=== PATIENT | female | born 1975 | race African-American/Black ===

== ENCOUNTER 2017-03-06 21:05 | Emergency (ER) | payer SELFPAY ==
[~2017-03-06] VITALS: Ht 157.5 cm; Wt 113.4 kg
[~2017-03-06 21:05] MED LIST: LISI-334 PO; LORA1TAB47 PO; RANI150T2 PO
[2017-03-06 21:17] VITALS: BP 149/65
[2017-03-06] MEDS ORDERED: HYDR30CR61 TP (21:32)
[2017-03-06] MEDS ORDERED: HYDR25SU18 RC (21:32)
--- NOTE | 2017-03-06 21:32 | PHYS DOC ---
Past Medical History Past Medical History: GERD, Hypertension, Other Additional Past Medical Histor: hemorroids Past Surgical History: Cholecystectomy, Alcohol Use: Occasionally Drug Use: None Adult General Chief Complaint Chief Complaint: HEMORRHOIDS HPI HPI Patient is a 41 year old female that presents to the emergency department with complaints of rectal pain. She states she has a history of hemorrhoids and has been constipated for the last 2-3 days. She has no abdominal pain. Review of Systems Review of Systems Constitutional: Denies fever or chills [] Eyes: Denies change in visual acuity, redness, or eye pain [] HENT: Denies nasal congestion or sore throat [] Respiratory: Denies cough or shortness of breath [] Cardiovascular: No additional information not addressed in HPI [] GI: Denies abdominal pain, nausea, vomiting, bloody stools or diarrhea; complains of constipation and rectal pain [] : Denies dysuria or hematuria [] Musculoskeletal: Denies back pain or joint pain [] Integument: Denies rash or skin lesions [] Neurologic: Denies headache, focal weakness or sensory changes [] Endocrine: Denies polyuria or polydipsia [] Allergies Allergies Allergies Coded Allergies Type Severity Reaction Last Updated Verified No Known Drug Allergies 11/30/14 No Physical Exam Physical Exam Constitutional: Well developed, well nourished, no acute distress, non-toxic appearance. [] Cardiovascular:Heart rate regular rhythm, no murmur [] Lungs & Thorax: Bilateral breath sounds clear to auscultation [] Abdomen: Bowel sounds normal, soft, no tenderness, no masses, no pulsatile masses. Rectal exam: She does have a nonthrombosed hemorrhoid, external. [] Skin: Warm, dry, no erythema, no rash. [] Neurologic: Alert and oriented X 3, normal motor function, normal sensory function, no focal deficits noted. [] Psychologic: Affect normal, judgement normal, mood normal. [] Current Patient Data Vital Signs Vital Signs Date Time Temp Pulse Resp B/P (MAP) Pulse Ox O2 Delivery O2 Flow Rate FiO2 03/06/17 21:17 99.0 20 149/65 (93) 96 Room Air 99.0 EKG EKG [] Radiology/Procedures Radiology/Procedures [] Course & Med Decision Making Course & Med Decision Making Pertinent Labs and Imaging studies reviewed. (See chart for details) [] Dragon Disclaimer Catina Disclaimer This electronic medical record was generated, in whole or in part, using a voice recognition dictation system. Departure Departure Impression: Primary Impression: Acute hemorrhoid Disposition: 01 HOME, SELF-CARE Condition: STABLE Referrals: NO PCP (PCP) [facility] Patient Instructions: Hemorrhoidectomy, Care After Additional Instructions: Increase the bulk foods in your diet, increase water intake. Increase exercise. You may use Colace [id number] as labeled and is indicated for constipation. Scripts Hydrocortisone (ANUSOL-HC) 30 Gm Cream..g. 1 GUILLE TP BID, #30 GM 1 Refill Prov: ACM AMBRIZ APRN 03/06/17 Hydrocortisone Acetate (ANUSOL-HC) 25 Mg Supp.rect 1 SUPP RC BID, #14 SUPP Prov: CAM AMBRIZ APRN 03/06/17 CAM AMBRIZ APRN Mar 06, 2017 21:32
== END 2017-03-06 21:43 | disposition home or self-care (01) ==
LOC: ER 21:05
DX: K64.4 Residual hemorrhoidal skin tags (principal); K21.9 Gastro-esophageal reflux disease without esophagitis; I10 Essential (primary) hypertension; Z90.49 Acquired absence of other specified parts of digestive tract
CPT/HCPCS: 99283

== ENCOUNTER 2017-03-26 14:30 | Emergency (ER) | payer SELFPAY ==
[~2017-03-26 14:30] MED LIST changes: +HYDR25SU18 RC; +HYDR30CR61 TP
[2017-03-26 14:45] VITALS: BP 137/62
[2017-03-26] MEDS ORDERED: IV NORMAL SALINE 1000ML BAG 1,000 ML IV SCH (15:10)
[2017-03-26] MEDS ORDERED: 0.9 % SODIUM CHLORIDE 10 ML DISP.SYRIN. IV PRN (15:15)
[2017-03-26] MEDS ORDERED: HYDROmorphone 2 MG/ML VIAL IV/SQ PRN (15:15)
[2017-03-26] MEDS ORDERED: HYDROmorphone 2 MG/ML VIAL IV ONE ×2 (15:15→17:15)
[2017-03-26] MEDS ORDERED: KETOROLAC TROMETHAMINE 30 MG/ML INJ. ONE (15:18)
[2017-03-26] MEDS ORDERED: ONDANSETRON PF 4 MG/2 ML VIAL. ONE (15:18)
[2017-03-26] MEDS ORDERED: HYDROmorphone 2 MG/ML VIAL ONE (15:18)
--- NOTE | 2017-03-26 15:20 | PHYS DOC ---
Past Medical History Past Medical History: GERD, Hypertension, Other Additional Past Medical Histor: hemorroids Past Surgical History: Cholecystectomy, Alcohol Use: Occasionally Drug Use: None Adult General Chief Complaint Chief Complaint: HEMORRHOIDS HPI HPI Patient is a very pleasant 41-year-old Afro-Tongan female with history of hypertension presents with a three-week history of progressive rectal pain. She was seen in our ER earlier last week told she had an hemorrhoid. She said this hemorrhoid pain is gotten progressively worse to the point now she cannot walk she cannot sit without the pain becoming increasingly severe. There hurts with bowel movements. She denies any blood in her stool she has had symptoms of fevers and chills at home now resting worse over last day. She is concerned that she has surgical issue that needs to be evaluated. She denies any trauma to her rectum, denies any UTI symptoms, denies any nausea, vomiting or diarrhea. She says that she's never had these symptoms before. She does not have insurance and she is not quite sure how she supposed to arrange for follow- up for these hemorrhoids that she told she needed banded by the ED physician a saw her last evaluation. She was seen here in our ER she was diagnosed with a nonthrombosed rectal hemorrhoid given preparation H and Anusol HC rectal suppositories and PCP follow-up. Review of Systems Review of Systems Constitutional: sHe has had fevers and chills. Eyes: Denies change in visual acuity, redness, or eye pain [] HENT: Denies nasal congestion or sore throat [] Respiratory: Denies cough or shortness of breath [] Cardiovascular: No additional information not addressed in HPI [] GI: Denies abdominal pain, nausea, vomiting, she describes severe rectal pain with bowel movements. Denies any blood in her stool. : Denies dysuria or hematuria [] Musculoskeletal: Denies back pain or joint pain [] Integument: Denies rash or skin lesions [] Neurologic: Denies headache, focal weakness or sensory changes [] Endocrine: Denies polyuria or polydipsia [] Current Medications Current Medications Current Medications Medications (Trade) Dose Ordered Sig/Trish Start Time Stop Time Status Last Admin Dose Admin Hydromorphone HCl (Dilaudid) 2 mg STK-MED ONCE 03/26/17 15:18 03/26/17 15:19 DC Info (Do NOT chart on this entry -- for MONITORING) 1 each PRN DAILY PRN 03/26/17 15:30 03/28/17 15:29 Iohexol (Omnipaque 300 Mg/ml) 75 ml 1X ONCE 03/26/17 16:00 03/26/17 16:01 DC 03/26/17 16:00 75 ML Ketorolac Tromethamine (Toradol) 30 mg STK-MED ONCE 03/26/17 15:18 03/26/17 15:19 DC Ondansetron HCl (Zofran) 4 mg STK-MED ONCE 03/26/17 15:18 03/26/17 15:19 DC Sodium Chloride (Normal Saline Flush) 10 ml QSHIFT PRN 03/26/17 15:15 Allergies Allergies Allergies Coded Allergies Type Severity Reaction Last Updated Verified No Known Drug Allergies 11/30/14 No Physical Exam Physical Exam Patient's vital signs been reviewed and was ordered on the chart shows low- grade fever with mild tachycardia. Patient is also tachypnea on my exam. Constitutional: Well developed, well nourished, patient is very uncomfortable nontoxic in appearance but laying on her left side down refusing put any pressure on her rectum. Cardiovascular: Heart rate is tachycardic there are no murmurs gallops or rubs normal rhythm, no murmur [] Lungs & Thorax: Bilateral breath sounds clear to auscultation [] Abdomen: Bowel sounds normal, soft, no tenderness, no masses, no pulsatile masses. Rectal exam demonstrates severe tenderness to palpation along the rectum and rectal verge. There is moderate soft tissue swelling and induration of the tissues. It was very difficult to see the rectum at all given the amount of soft tissue swelling around the soft tissues of the anus.. [] Skin: Warm, dry, no erythema, no rash. [] Back: No tenderness, no CVA tenderness. [] Extremities: No tenderness, no cyanosis, no clubbing, ROM intact, no edema. [] Neurologic: Alert and oriented X 3, normal motor function, normal sensory function, no focal deficits noted. [] Psychologic: She is very tearful and very anxious.] Current Patient Data Vital Signs Vital Signs Date Time Temp Pulse Resp B/P (MAP) Pulse Ox O2 Delivery O2 Flow Rate FiO2 03/26/17 14:45 99.2 116 20 97 Room Air 99.2 Lab Values Laboratory Tests Test 03/26/17 15:20 03/26/17 15:26 White Blood Count 9.4 x10^3/uL (4.0-11.0) Red Blood Count 4.82 x10^6/uL (3.50-5.40) Hemoglobin 14.3 g/dL (12.0-15.5) Hematocrit 42.5 % (36.0-47.0) Mean Corpuscular Volume 88 fL (79-100) Mean Corpuscular Hemoglobin 30 pg (25-35) Mean Corpuscular Hemoglobin Concent 34 g/dL (31-37) Red Cell Distribution Width 14.3 % (11.5-14.5) Platelet Count 205 x10^3/uL (140-400) Neutrophils (%) (Auto) 61 % (31-73) Lymphocytes (%) (Auto) 28 % (24-48) Monocytes (%) (Auto) 8 % (0-9) Eosinophils (%) (Auto) 3 % (0-3) Basophils (%) (Auto) 1 % (0-3) Neutrophils # (Auto) 5.7 x10^3uL (1.8-7.7) Lymphocytes # (Auto) 2.6 x10^3/uL (1.0-4.8) Monocytes # (Auto) 0.7 x10^3/uL (0.0-1.1) Eosinophils # (Auto) 0.3 x10^3/uL (0.0-0.7) Basophils # (Auto) 0.1 x10^3/uL (0.0-0.2) Sodium Level 139 mmol/L (136-145) Potassium Level 3.5 mmol/L (3.5-5.1) Chloride Level 101 mmol/L (98-107) Carbon Dioxide Level 32 mmol/L (21-32) Anion Gap 6 (6-14) Blood Urea Nitrogen 13 mg/dL (7-20) Creatinine 1.0 mg/dL (0.6-1.0) Estimated GFR (Cockcroft-Gault) 73.2 BUN/Creatinine Ratio 13 (6-20) Glucose Level 128 mg/dL (70-99) H Calcium Level 8.6 mg/dL (8.5-10.1) Total Bilirubin 0.5 mg/dL (0.2-1.0) Aspartate Amino Transferase (AST) 14 U/L (15-37) L Alanine Aminotransferase (ALT) 32 U/L (14-59) Alkaline Phosphatase 74 U/L (46-116) Total Protein 7.8 g/dL (6.4-8.2) Albumin 3.7 g/dL (3.4-5.0) Albumin/Globulin Ratio 0.9 (1.0-1.7) L Lactic Acid Level 1.3 mmol/L (0.4-2.0) Laboratory Tests 03/26/17 15:20 Laboratory Tests 03/26/17 15:20 EKG EKG [] Radiology/Procedures Radiology/Procedures [] [facility] [address] [place] [address] IMAGING REPORT Signed PATIENT: DANIEL BEVERLY ACCOUNT: [id number] : 1975 LOCATION: ER AGE: 41 SEX: F EXAM STATUS: REG ER ORD. PHYSICIAN: JELENA PERSAUD MD REASON: rectal pain with fever and increased pain PROCEDURE: CT ABD PELV W/ IV CONTRST ONLY CT scan of the abdomen and pelvis with contrast 03/26/2017 Clinical history: Rectal pain and fever. Technique: After the intravenous administration of 75 cc of Omnipaque 300, contiguous, 5 mm axial sections were obtained through the abdomen and pelvis. 75 cc of Omnipaque 300 were administered intravenously during this examination. One or more of the following individualized dose reduction techniques were utilized for this study: 1. Automated exposure control. 2. Adjustment of the mA and/or kV according to patient size. 3. Use of iterative reconstruction technique. Findings: No previous imaging studies are available for comparison. Images through the lung bases demonstrate borderline cardiomegaly. A 4 mm calcified granuloma is seen involving the left lower lobe. The liver parenchyma has a decreased attenuation consistent with mild fatty infiltration. The liver is mildly enlarged measuring 23 cm in length. The spleen, pancreas, adrenal glands and kidneys are within normal limits. The abdominal aorta tapers normally. Surgical clips are seen within the gallbladder fossa consistent with a cholecystectomy. No free fluid or free air is seen within the abdomen. There is no evidence of bowel obstruction. The appendix is well visualized and is within normal limits. Images through the pelvis demonstrate the urinary bladder distended with urine. Tubal ligation clips are seen within the pelvis. Calcifications are seen within the pelvis consistent with phleboliths. No free fluid is seen. No abnormal fluid collection is seen in the ischiorectal fossa. Mild S-shaped curvature of the thoracolumbar spine is seen. Degenerative changes are seen involving the lower thoracic and mid and lower lumbar spine and both hips. Impression: No acute abnormality is seen. DICTATED and SIGNED BY: PEYTON STERN MD DATE: 03/26/17 [id number] CC: JELENA PERSAUD MD; UNKNOWN PCP NAME ~ Course & Med Decision Making Course & Med Decision Making Pertinent Labs and Imaging studies reviewed. (See chart for details) she presents with increasing rectal pain over the last 3 weeks without fevers and chills. My initial concern upon attempted rectal exam given although soft tissue swelling was rectal abscess or perirectal abscess. Patient's fever is low -grade at 99.2 patient given fluids antiemetics and pain meds here in the ER to help facilitate evaluation .Patient tells me that their symptoms given during CC are improved. Time is now 4 PM. Patient tells me that their symptoms given during CC are improved. He is resting comfortably we reviewed labs and radiology report. Patient has a normal white blood cell count and normal CBC. She has normal CMP. CT scan reveals no evidence of soft tissue swelling abscess or perirectal abscess at this time. Patient's symptoms are markedly improved. I have offered patient viscous lidocaine to treat the surface of her rectum. She was offered pain medications and continued rectal hygiene help improve her symptoms until we are for her back to Dr. Alfonso, colorectal surgeon who may help with her hemorrhoid management. [] Impression, external hemorrhoids, rectal pain Disposition: PCP follow-up with general surgery or rectal surgery referral. [place] Disclaimer Catina Disclaimer This electronic medical record was generated, in whole or in part, using a voice recognition dictation system. Departure Departure Impression: Primary Impression: Rectal pain Additional Impression: Hemorrhoids Disposition: HOME, SELF-CARE Referrals: NO PCP (PCP) Patient Instructions: Hemorrhoids, Hydrocortisone; Lidocaine rectal cream or gel Additional Instructions: Please return for any new or increasing symptoms of rectal pain despite treatment or if you have fevers greater than 102.2 despite treatment or given any question concerns. I would advise that you increase your conception of fluids as well as a stool bulking agents of fruits and vegetables. Call Dr. Elie Alfonso Address: [address], [place] [address] At this time there is no evidence of perirectal abscess but given your increasing pain subjective fevers I would advise a follow-up very closely with this colorectal surgeon. He will be able to offer you other alternatives to treatment. I placed a call to his office to let him know you're interested in his services and to call him tomorrow morning. Scripts Oxycodone/Apap 5-325 (PERCOCET 5-325 MG TABLET) 1 Each Tablet 1-2 TAB PO Q4-6HRS, #12 TAB Prov: JELENA PERSAUD MD 03/26/17 Hydrocortisone Acetate (ANUSOL-HC) 25 Mg Supp.rect 1 SUPP RC BID, #28 SUPP Prov: JELENA PERSAUD MD 03/26/17 Lidocaine/Prilocaine (LIDOCAINE-PRILOCAINE CREAM) 30 Gm Cream..g. 30 GM TP [id number] for 10 Days, #30 EACH Prov: JELENA PERSAUD MD 03/26/17 Problem Qualifiers JELENA PERSAUD MD Mar 26, 2017 15:20
[2017-03-26 15:23] LABS: BASO # 0.1 x10^3/uL (0.0-0.2); BASO % 1 % (0-3); EOS % 3 % (0-3); HEMATOCRIT 42.5 % (36.0-47.0); HEMOGLOBIN 14.3 g/dL (12.0-15.5); LYMPH # 2.6 x10^3/uL (1.0-4.8); LYMPH % 28 % (24-48); MEAN CORPUSCULAR HEMOGLOBIN 30 pg (25-35); MEAN CORPUSCULAR HGB CONC 34 g/dL (31-37); MEAN CORPUSCULAR VOLUME 88 fL (79-100); MONO % 8 % (0-9); NEUT % 61 % (31-73); PLATELET COUNT 205 x10^3/uL (140-400); RED BLOOD COUNT 4.82 x10^6/uL (3.50-5.40); RED CELL DISTRIBUTION WIDTH 14.3 % (11.5-14.5); WHITE BLOOD COUNT 9.4 x10^3/uL (4.0-11.0)
[2017-03-26] MEDS ORDERED: CONTRAST GIVEN MC PRN (15:30)
[2017-03-26 15:34] LABS: CALCIUM 8.6 mg/dL (8.5-10.1); GFR 73.2; POTASSIUM 3.5 mmol/L (3.5-5.1)
[2017-03-26 15:40] LABS: ALBUMIN 3.7 g/dL (3.4-5.0); ALBUMIN/GLOBULIN RATIO 0.9 (1.0-1.7); TOTAL BILIRUBIN 0.5 mg/dL (0.2-1.0); TOTAL PROTEIN 7.8 g/dL (6.4-8.2)
[2017-03-26] MEDS ORDERED: ONDANSETRON PF 4 MG/2 ML VIAL. IV ONE (15:45)
[2017-03-26] MEDS ORDERED: KETOROLAC TROMETHAMINE 30 MG/ML INJ. IV ONE (15:45)
[2017-03-26] MEDS ORDERED: IOHEXOL 300 MG/ML 75 ML VIAL IV ONE (16:00)
--- NOTE | 2017-03-26 16:24 | RAD ---
CT scan of the abdomen and pelvis with contrast 03/26/2017 Clinical history: Rectal pain and fever. Technique: After the intravenous administration of 75 cc of Omnipaque 300, contiguous, 5 mm axial sections were obtained through the abdomen and pelvis. 75 cc of Omnipaque 300 were administered intravenously during this examination. One or more of the following individualized dose reduction techniques were utilized for this study: 1. Automated exposure control. 2. Adjustment of the mA and/or kV according to patient size. 3. Use of iterative reconstruction technique. Findings: No previous imaging studies are available for comparison. Images through the lung bases demonstrate borderline cardiomegaly. A 4 mm calcified granuloma is seen involving the left lower lobe. The liver parenchyma has a decreased attenuation consistent with mild fatty infiltration. The liver is mildly enlarged measuring 23 cm in length. The spleen, pancreas, adrenal glands and kidneys are within normal limits. The abdominal aorta tapers normally. Surgical clips are seen within the gallbladder fossa consistent with a cholecystectomy. No free fluid or free air is seen within the abdomen. There is no evidence of bowel obstruction. The appendix is well visualized and is within normal limits. Images through the pelvis demonstrate the urinary bladder distended with urine. Tubal ligation clips are seen within the pelvis. Calcifications are seen within the pelvis consistent with phleboliths. No free fluid is seen. No abnormal fluid collection is seen in the ischiorectal fossa. Mild S-shaped curvature of the thoracolumbar spine is seen. Degenerative changes are seen involving the lower thoracic and mid and lower lumbar spine and both hips. Impression: No acute abnormality is seen.
[2017-03-26] MEDS ORDERED: LIDOCAINE 5% TOPICAL OINTMENT 35GM TUBE. TP ONE (17:00)
[2017-03-26] MEDS ORDERED: OXYC-323 PO (17:05)
[2017-03-26] MEDS ORDERED: LIDO30CR TP (17:05)
[2017-03-26] MEDS ORDERED: HYDR25SU18 RC (17:05)
--- NOTE | 2017-03-27 06:52 | EKG ---
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
== END 2017-03-26 17:56 | disposition home or self-care (01) ==
LOC: ER 14:30
DX: K64.4 Residual hemorrhoidal skin tags (principal); R50.9 Fever, unspecified; K21.9 Gastro-esophageal reflux disease without esophagitis; I10 Essential (primary) hypertension
CPT/HCPCS: 36415; 74177; 80053; 83605; 85027; 87040; 93005; 96361; 96374; 96375; 99285; J1170; J1885; J2405; J7030; Q9967

== ENCOUNTER 2018-06-15 18:23 | Emergency (ER) | payer SELFPAY ==
[~2018-06-15] VITALS: Ht 157.5 cm; Wt 113.4 kg
[~2018-06-15 18:23] MED LIST changes: +LIDO30CR TP; +OXYC-323 PO
[2018-06-15 19:59] LABS: BASO # 0.1 x10^3/uL (0.0-0.2); BASO % 1 % (0-3); EOS # 0.3 x10^3/uL (0.0-0.7); EOS % 4 % (0-3); HEMATOCRIT 41.8 % (36.0-47.0); LYMPH % 28 % (24-48); MEAN CORPUSCULAR HEMOGLOBIN 30 pg (25-35); MEAN CORPUSCULAR HGB CONC 34 g/dL (31-37); MEAN CORPUSCULAR VOLUME 88 fL (79-100); MONO # 0.6 x10^3/uL (0.0-1.1); MONO % 8 % (0-9); NEUT # 4.4 x10^3uL (1.8-7.7); NEUT % 60 % (31-73); PLATELET COUNT 196 x10^3/uL (140-400); RED BLOOD COUNT 4.74 x10^6/uL (3.50-5.40); WHITE BLOOD COUNT 7.3 x10^3/uL (4.0-11.0)
[2018-06-15] MEDS: cloNIDine HCL 0.1 MG TABLET PO ONE (20:01)
[2018-06-15 20:02] VITALS: BP 185/94
[2018-06-15] MEDS: LISINOPRIL 10 MG TABLET PO ONE (20:02)
[2018-06-15] MEDS: HYDROcodone/APAP 5/325MG 1 TAB TABLET PO ONE (20:08)
[2018-06-15] MEDS ORDERED: COLC0.6T34 PO (21:03)
--- NOTE | 2018-06-15 21:03 | PHYS DOC ---
Past Medical History Past Medical History: GERD, Hypertension, Other Additional Past Medical Histor: hemorroids Past Surgical History: Cholecystectomy, Alcohol Use: Occasionally Drug Use: None Adult General Chief Complaint Chief Complaint: HAND PROBLEM HPI HPI Patient is a 43 year old female who presents with hand pain that started suddenly waking her from sleep. She has erythema and severe pain to her right thumb. She denies any known injury. The patient has never been diagnosed with gout. She has not tried any [id number] medications for pain. Review of Systems Review of Systems Constitutional: Denies fever or chills [] Respiratory: Denies cough or shortness of breath [] Cardiovascular: No additional information not addressed in HPI [] GI: Denies abdominal pain, nausea, vomiting, bloody stools or diarrhea [] : Denies dysuria or hematuria [] Musculoskeletal: See history of present illness Integument: Denies rash or skin lesions [] Neurologic: Denies headache, focal weakness or sensory changes [] Endocrine: Denies polyuria or polydipsia [] All other systems were reviewed and found to be within normal limits, except as documented in this note. Current Medications Current Medications Current Medications Medications (Trade) Dose Ordered Sig/Trish Start Time Stop Time Status Last Admin Dose Admin Acetaminophen/ Hydrocodone Bitart (Lortab 5/325) 1 tab 1X ONCE 06/15/18 20:00 06/15/18 20:01 DC 06/15/18 20:08 1 TAB Clonidine HCl (Catapres) 0.1 mg 1X ONCE 06/15/18 19:30 06/15/18 19:31 DC 06/15/18 20:01 0.1 MG Lisinopril (Prinivil) 20 mg 1X ONCE 06/15/18 19:30 06/15/18 19:31 DC 06/15/18 20:02 20 MG Allergies Allergies Allergies Coded Allergies Type Severity Reaction Last Updated Verified No Known Drug Allergies 11/30/14 No Physical Exam Physical Exam Constitutional: Well developed, well nourished, no acute distress, non-toxic appearance. [] Cardiovascular:Heart rate regular rhythm, no murmur [] Lungs & Thorax: Bilateral breath sounds clear to auscultation [] Abdomen: Bowel sounds normal, soft, no tenderness, no masses, no pulsatile masses. [] Skin: Warm, dry, no erythema, no rash. [] Back: No tenderness, no CVA tenderness. [] Extremities: tenderness to right thumb with calor and erythema noted, no cyanosis, no clubbing, ROM intact, no edema. [] Neurologic: Alert and oriented X 3, normal motor function, normal sensory function, no focal deficits noted. [] Psychologic: Affect normal, judgement normal, mood normal. [] Current Patient Data Vital Signs Vital Signs Date Time Temp Pulse Resp B/P (MAP) Pulse Ox O2 Delivery O2 Flow Rate FiO2 06/15/18 20:08 20 96 Room Air 06/15/18 20:02 88 185/94 06/15/18 19:06 98.9 98.9 Lab Values Laboratory Tests Test 06/15/18 19:40 White Blood Count 7.3 x10^3/uL (4.0-11.0) Red Blood Count 4.74 x10^6/uL (3.50-5.40) Hemoglobin 14.0 g/dL (12.0-15.5) Hematocrit 41.8 % (36.0-47.0) Mean Corpuscular Volume 88 fL (79-100) Mean Corpuscular Hemoglobin 30 pg (25-35) Mean Corpuscular Hemoglobin Concent 34 g/dL (31-37) Red Cell Distribution Width 15.0 % (11.5-14.5) H Platelet Count 196 x10^3/uL (140-400) Neutrophils (%) (Auto) 60 % (31-73) Lymphocytes (%) (Auto) 28 % (24-48) Monocytes (%) (Auto) 8 % (0-9) Eosinophils (%) (Auto) 4 % (0-3) H Basophils (%) (Auto) 1 % (0-3) Neutrophils # (Auto) 4.4 x10^3uL (1.8-7.7) Lymphocytes # (Auto) 2.0 x10^3/uL (1.0-4.8) Monocytes # (Auto) 0.6 x10^3/uL (0.0-1.1) Eosinophils # (Auto) 0.3 x10^3/uL (0.0-0.7) Basophils # (Auto) 0.1 x10^3/uL (0.0-0.2) Uric Acid 5.3 mg/dL (2.6-6.0) Laboratory Tests 06/15/18 19:40 EKG EKG [] Radiology/Procedures Radiology/Procedures [] Course & Med Decision Making Course & Med Decision Making Pertinent Labs and Imaging studies reviewed. (See chart for details) [] Dragon Disclaimer Dragon Disclaimer This electronic medical record was generated, in whole or in part, using a voice recognition dictation system. Departure Departure Impression: Primary Impression: Gout Disposition: HOME, SELF-CARE Condition: STABLE Referrals: UNKNOWN PCP NAME (PCP) Patient Instructions: Gout Additional Instructions: Take the medication as prescribed. Follow-up with your primary care provider for recheck in 3 days if not improving or return to the emergency department if worsening. 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 I was available for consultation as needed during the patient's visit in the emergency department. I agree with the clinical impression, plan, and disposition. OCTAVIANO SHAH APRN Jun 15, 2018 21:03 EVER SINHA DO Jun 16, 2018 04:35
[2018-06-15] MEDS ORDERED: LISI-334 PO (21:07)
--- NOTE | 2018-06-16 00:01 | RAD ---
Examination: HAND RIGHT 3V History: ER PATIENT. RIGHT HAND SWELLING, PAIN, AND REDNESS . NKI. NO PRIORS Comparison/Correlation: None Findings: Total of 4 images of the right hand were obtained. A ring is present about the fourth digit proximal phalanx limiting assessment at this site. Joint spaces are normal. No fracture or bone destruction. Soft tissues are unremarkable. No significant degenerative change. Impression: No acute process. Electronically signed by: Donald Lazaro MD (06/15/2018 11:58 PM) [facility]
== END 2018-06-15 21:10 | disposition home or self-care (01) ==
LOC: ER 18:23
DX: M10.9 Gout, unspecified (principal); M79.641 Pain in right hand; K21.9 Gastro-esophageal reflux disease without esophagitis; I10 Essential (primary) hypertension; Z90.49 Acquired absence of other specified parts of digestive tract; Z98.890 Other specified postprocedural states
CPT/HCPCS: 36415; 73130; 84550; 85025; 99285-25

== ENCOUNTER 2018-08-27 19:36 | Emergency (ER) | payer SELFPAY ==
[~2018-08-27] VITALS: Ht 157.5 cm; Wt 113.4 kg
[~2018-08-27 19:36] MED LIST changes: +COLC0.6T34 PO; -OXYC-323 PO; +OXYC1TAB15 PO
[2018-08-27 20:26] LABS: BILIRUBIN,URINE NEGATIVE (NEG); CLARITY,URINE CLEAR; COLOR,URINE YELLOW; NITRITE,URINE NEGATIVE (NEG); PROTEIN,URINE NEGATIVE (NEG-TRACE)
--- NOTE | 2018-08-27 20:29 | PHYS DOC ---
Past Medical History Past Medical History: GERD, Hypertension, Kidney Stone, Other Additional Past Medical Histor: hemorroids Past Surgical History: Cholecystectomy, Alcohol Use: Occasionally Drug Use: None Adult General Chief Complaint Chief Complaint: BACK PAIN - NO INJURY [facility] HPI Patient is a 43 year old female presents with low back pain onset yesterday she does not recall specific trauma bilateral feels like a spasm and a pulling in her low back. It's worse with different positions. No bowel bladder incontinence although it hurts when she tries to have a bowel movement. In other words her back muscles hurt when she strained she tells me no abdominal pain no numbness tingling or weakness in her lower extremities no chest pain or shortness of breath she did not take it her blood pressure medication today. She has not tried anything else for relief. Symptoms are moderate Review of Systems Review of Systems Constitutional: Denies fever or chills [] Eyes: Denies change in visual acuity, redness, or eye pain [] Cardiovascular: No additional information not addressed in HPI [] Neurologic: Denies headache, focal weakness or sensory changes [] Endocrine: Denies polyuria or polydipsia [] All other systems were reviewed and found to be within normal limits, except as documented in this note. Current Medications Current Medications Current Medications Medications (Trade) Dose Ordered Sig/[facility] Start Time Stop Time Status Last Admin Dose Admin Acetaminophen/ Hydrocodone Bitart (Lortab 5/325) 2 tab 1X ONCE 08/27/18 20:30 08/27/18 20:31 DC 08/27/18 20:23 2 TAB Clonidine HCl (Catapres) 0.1 mg 1X ONCE 08/27/18 20:30 08/27/18 20:31 DC 08/27/18 20:23 0.1 MG Allergies Allergies Allergies Coded Allergies Type Severity Reaction Last Updated Verified No Known Drug Allergies 11/30/14 No Physical Exam Physical Exam Constitutional: Well developed, well nourished, no acute distress, non-toxic appearance. [] HENT: Normocephalic, atraumatic, bilateral external ears normal, oropharynx moist, no oral exudates, nose normal. [] Eyes: PERRLA, EOMI, conjunctiva normal, no discharge. [] Neck: Normal range of motion, no tenderness, supple, no stridor. [] Pulmonary: Normal respiratory effort no increased work of breathing no obvious chest wall trauma Abdomen: Bowel sounds normal, soft, no tenderness, no masses, no pulsatile masses. [] Back there is bilateral paraspinous tenderness noted no focal midline tenderness. Extremities: No tenderness, no cyanosis, no clubbing, ROM intact, no edema. [] Neurologic: Alert and oriented X 3, normal motor function, normal sensory function, no focal deficits noted. [] Psychologic: Affect normal, judgement normal, mood normal. [] Current Patient Data Vital Signs Vital Signs Date Time Temp Pulse Resp B/P (MAP) Pulse Ox O2 Delivery O2 Flow Rate FiO2 08/27/18 21:30 86 18 187/104 (131) 98 Room Air 08/27/18 20:05 98.2 98.2 Lab Values Laboratory Tests Test 08/27/18 19:52 Urine Color Yellow Urine Clarity Clear Urine pH 7.0 Urine Specific [place] 1.020 Urine Protein Negative mg/dL (NEG-TRACE) Urine Glucose (UA) Negative mg/dL (NEG) Urine Ketones (Stick) Negative mg/dL (NEG) Urine Blood Negative (NEG) Urine Nitrite Negative (NEG) Urine Bilirubin Negative (NEG) Urine Urobilinogen Dipstick 1.0 mg/dL (0.2 mg/dL) Urine Leukocyte Esterase Negative (NEG) Urine RBC 0 /HPF (0-2) Urine WBC Occ /HPF (0-4) Urine Squamous Epithelial Cells Occ /LPF Urine Bacteria 0 /HPF (0-FEW) Urine Test Negative (NEG) EKG EKG [] Radiology/Procedures Radiology/Procedures [] Course & Med Decision Making Course & Med Decision Making Pertinent Labs and Imaging studies reviewed. (See chart for details) []Reproducible back pain she has pain with palpation of her's paraspinous muscles as well as with sitting up in the bed. Abdomen was nontender we gave blood pressure medication we check urinalysis she did note some foul-smelling urine. On reevaluation she felt better. Urinalysis was negative for infection. On reevaluation of blood pressure was much better she felt better she did ask for antibiotics she had good the google page up about foul-smelling urine. i reiterated u/a showed 0 wbc she also said she has had yeast infections of smoking with this before so we did opt for a single dose of fluconazole she deferred pelvic examination at this time. I also asked her to get her blood pressure follow-up and within 1 month if not sooner Catina Disclaimer Catina Disclaimer This electronic medical record was generated, in whole or in part, using a voice recognition dictation system. Departure Departure Impression: Primary Impression: Back pain Additional Impression: Elevated blood pressure reading Disposition: HOME, SELF-CARE Condition: STABLE Referrals: UNKNOWN PCP NAME (PCP) Scripts Fluconazole (DIFLUCAN) 150 Mg Tablet 1 TAB PO ONCE, #1 TAB 1 Refill Prov: SHABBIR BRUNER MD 08/27/18 Cyclobenzaprine Hcl (CYCLOBENZAPRINE HCL) 5 Mg Tablet 5 MG PO PRN TID PRN for PAIN, #15 TAB Prov: SHABBIR BRUNER MD 08/27/18 Problem Qualifiers SHABBIR BRUNER MD Aug 27, 2018 20:29
[2018-08-27] MEDS ORDERED: cloNIDine HCL 0.1 MG TABLET PO ONE (20:30)
[2018-08-27] MEDS ORDERED: HYDROcodone/APAP 5/325MG 1 TAB TABLET PO ONE (20:30)
[2018-08-27 20:34] LABS: U PREG PATIENT NEGATIVE (NEG)
[2018-08-27 20:39] LABS: BACTERIA,URINE 0 /HPF (0-FEW); RBC,URINE 0 /HPF (0-2); SQUAMOUS EPITHELIAL CELL,UR OCC /LPF; WBC,URINE OCC /HPF (0-4)
[2018-08-27] MEDS ORDERED: FLUC150T PO (21:24)
[2018-08-27] MEDS ORDERED: CYCL5TAB PO (21:24)
[2018-08-27 21:30] VITALS: BP 187/104
== END 2018-08-27 21:40 | disposition home or self-care (01) ==
LOC: ER 19:36
DX: M54.5 Low back pain (principal); I10 Essential (primary) hypertension; K21.9 Gastro-esophageal reflux disease without esophagitis; Z87.442 Personal history of urinary calculi; Z98.890 Other specified postprocedural states
CPT/HCPCS: 81001; 81025; 99283

== ENCOUNTER 2019-01-01 13:50 | Emergency (ER) | payer SELFPAY ==
[~2019-01-01] VITALS: Ht 157.5 cm; Wt 111.1 kg
[~2019-01-01 13:50] MED LIST changes: +CYCL5TAB PO; +FLUC150T PO
[2019-01-01] MEDS ORDERED: IV NORMAL SALINE 1000ML BAG 1,000 ML IV ONE (15:00)
[2019-01-01] MEDS ORDERED: FAMOTIDINE 20 MG/2 ML VIAL IVP ONE (15:15)
[2019-01-01] MEDS ORDERED: ONDANSETRON PF 4 MG/2 ML VIAL. IV ONE (15:15)
[2019-01-01 15:27] LABS: BILIRUBIN,URINE NEGATIVE (NEG); CLARITY,URINE CLEAR; COLOR,URINE AMBER; NITRITE,URINE NEGATIVE (NEG); PH,URINE 5.5; PROTEIN,URINE NEGATIVE (NEG-TRACE); UROBILINOGEN,URINE 0.2 mg/dL (0.2 mg/dL)
[2019-01-01 15:32] LABS: BARBITURATES NEG (NEG); BENZODIAZEPINES NEG (NEG); CANNABINOIDS NEG (NEG); COCAINE POS (NEG); METHADONE NEG (NEG); OPIATES NEG (NEG); PHENCYCLIDINE NEG (NEG)
[2019-01-01 15:33] LABS: AMPHETAMINE/METHAMPHETAMINE NEG (NEG)
[2019-01-01 15:54] LABS: BACTERIA,URINE MOD /HPF (0-FEW); RBC,URINE 0 /HPF (0-2); SQUAMOUS EPITHELIAL CELL,UR OCC /LPF
[2019-01-01 15:58] LABS: BASO % 0 % (0-3); EOS # 0.1 x10^3/uL (0.0-0.7); EOS % 2 % (0-3); HEMATOCRIT 42.1 % (36.0-47.0); HEMOGLOBIN 14.1 g/dL (12.0-15.5); LYMPH # 2.2 x10^3/uL (1.0-4.8); LYMPH % 33 % (24-48); MEAN CORPUSCULAR HEMOGLOBIN 29 pg (25-35); MEAN CORPUSCULAR HGB CONC 33 g/dL (31-37); MEAN CORPUSCULAR VOLUME 88 fL (79-100); MONO # 0.5 x10^3/uL (0.0-1.1); MONO % 8 % (0-9); NEUT # 3.7 x10^3uL (1.8-7.7); NEUT % 57 % (31-73); PLATELET COUNT 202 x10^3/uL (140-400); RED CELL DISTRIBUTION WIDTH 15.6 % (11.5-14.5); WHITE BLOOD COUNT 6.5 x10^3/uL (4.0-11.0)
[2019-01-01 16:12] LABS: CALCIUM 8.9 mg/dL (8.5-10.1); CREATININE 0.8 mg/dL (0.6-1.0); GFR 93.9; POTASSIUM 3.7 mmol/L (3.5-5.1)
[2019-01-01 16:19] LABS: ALBUMIN 3.5 g/dL (3.4-5.0); ALBUMIN/GLOBULIN RATIO 0.9 (1.0-1.7); TOTAL BILIRUBIN 0.7 mg/dL (0.2-1.0); TOTAL PROTEIN 7.3 g/dL (6.4-8.2)
[2019-01-01] MEDS ORDERED: LISI1TAB3 PO (17:28)
[2019-01-01] MEDS ORDERED: ONDA4TAB12 PO (17:28)
[2019-01-01] MEDS ORDERED: CEPH500T PO (17:28)
--- NOTE | 2019-01-01 17:28 | PHYS DOC ---
Past Medical History Past Medical History: GERD, Hypertension, Kidney Stone, Other Additional Past Medical Histor: hemorroids Past Surgical History: Cholecystectomy, Alcohol Use: Heavy Drug Use: None Adult General Chief Complaint Chief Complaint: NAUSEA/VOMITING/[facility] HPI HPI Patient is a 43 year old female with history of hypertension who presents the ED today complaining of dysuria generalized abdominal pain described as cramping and nausea symptoms for 2 weeks. Patient believes she could have a UTI. Denies any fever. She states she does not have an appetite but she is asking for food. Denies any hematuria. Review of Systems Review of Systems Constitutional: Denies fever or chills [] Eyes: Denies change in visual acuity, redness, or eye pain [] HENT: Denies nasal congestion or sore throat [] Respiratory: Denies cough or shortness of breath [] Cardiovascular: No additional information not addressed in HPI [] GI: Reports abdominal pain with nausea, denies vomiting, bloody stools or diarrhea [] : Reports dysuria, denies hematuria [] Musculoskeletal: Denies back pain or joint pain [] Integument: Denies rash or skin lesions [] Neurologic: Denies headache, focal weakness or sensory changes [] All other systems were reviewed and found to be within normal limits, except as documented in this note. Current Medications Current Medications Current Medications Medications (Trade) Dose Ordered Sig/Trish Start Time Stop Time Status Last Admin Dose Admin Famotidine (Pepcid Vial) 20 mg 1X ONCE 01/01/19 15:15 01/01/19 15:16 DC 01/01/19 15:26 20 MG Ondansetron HCl (Zofran) 4 mg 1X ONCE 01/01/19 15:15 01/01/19 15:16 DC 01/01/19 15:26 4 MG Sodium Chloride 1,000 ml @ 1,000 mls/hr 1X ONCE 01/01/19 15:00 01/01/19 15:59 DC 01/01/19 15:25 1,000 MLS/HR Allergies Allergies Allergies Coded Allergies Type Severity Reaction Last Updated Verified No Known Drug Allergies 11/30/14 No Physical Exam Physical Exam Constitutional: Well developed, well nourished, no acute distress, non-toxic appearance. [] HENT: Normocephalic, atraumatic, bilateral external ears normal, oropharynx moist, no oral exudates, nose normal. [] Eyes: PERRLA, EOMI, conjunctiva normal, no discharge. [] Neck: Normal range of motion, no tenderness, supple, no stridor. [] Cardiovascular:Heart rate regular rhythm, no murmur [] Lungs & Thorax: Bilateral breath sounds clear to auscultation [] Abdomen: Bowel sounds normal, soft, no tenderness, no masses, no pulsatile masses. [] Skin: Warm, dry, no erythema, no rash. [] Back: No tenderness, no CVA tenderness. [] Extremities: No tenderness, no cyanosis, no clubbing, ROM intact, no edema. [] Neurologic: Alert and oriented X 3, normal motor function, normal sensory function, no focal deficits noted. [] Psychologic: Affect normal, judgement normal, mood normal. [] Current Patient Data Vital Signs Vital Signs Date Time Temp Pulse Resp B/P (MAP) Pulse Ox O2 Delivery O2 Flow Rate FiO2 01/01/19 14:25 98.6 93 18 183/111 (135) 96 Room Air 98.6 Lab Values Laboratory Tests Test 01/01/19 14:10 01/01/19 15:30 Urine Color Yas Urine Clarity Clear Urine pH 5.5 Urine Specific [place] 1.025 Urine Protein Negative mg/dL (NEG-TRACE) Urine Glucose (UA) Negative mg/dL (NEG) Urine Ketones (Stick) Negative mg/dL (NEG) Urine Blood Negative (NEG) Urine Nitrite Negative (NEG) Urine Bilirubin Negative (NEG) Urine Urobilinogen Dipstick 0.2 mg/dL (0.2 mg/dL) Urine Leukocyte Esterase Small (NEG) Urine RBC 0 /HPF (0-2) Urine WBC 5-10 /HPF (0-4) Urine Squamous Epithelial Cells Occ /LPF Urine Bacteria Mod /HPF (0-FEW) Urine Mucus Mod /LPF Urine Opiates Screen Neg (NEG) Urine Methadone Screen Neg (NEG) Urine Barbiturates Neg (NEG) Urine Phencyclidine Screen Neg (NEG) Urine Amphetamine/Methamphetamine Neg (NEG) Urine Benzodiazepines Screen Neg (NEG) Urine Cocaine Screen Pos (NEG) Urine Cannabinoids Screen Neg (NEG) Urine Ethyl Alcohol Neg (NEG) White Blood Count 6.5 x10^3/uL (4.0-11.0) Red Blood Count 4.80 x10^6/uL (3.50-5.40) Hemoglobin 14.1 g/dL (12.0-15.5) Hematocrit 42.1 % (36.0-47.0) Mean Corpuscular Volume 88 fL (79-100) Mean Corpuscular Hemoglobin 29 pg (25-35) Mean Corpuscular Hemoglobin Concent 33 g/dL (31-37) Red Cell Distribution Width 15.6 % (11.5-14.5) H Platelet Count 202 x10^3/uL (140-400) Neutrophils (%) (Auto) 57 % (31-73) Lymphocytes (%) (Auto) 33 % (24-48) Monocytes (%) (Auto) 8 % (0-9) Eosinophils (%) (Auto) 2 % (0-3) Basophils (%) (Auto) 0 % (0-3) Neutrophils # (Auto) 3.7 x10^3uL (1.8-7.7) Lymphocytes # (Auto) 2.2 x10^3/uL (1.0-4.8) Monocytes # (Auto) 0.5 x10^3/uL (0.0-1.1) Eosinophils # (Auto) 0.1 x10^3/uL (0.0-0.7) Basophils # (Auto) 0.0 x10^3/uL (0.0-0.2) Sodium Level 144 mmol/L (136-145) Potassium Level 3.7 mmol/L (3.5-5.1) Chloride Level 106 mmol/L (98-107) Carbon Dioxide Level 29 mmol/L (21-32) Anion Gap 9 (6-14) Blood Urea Nitrogen 8 mg/dL (7-20) Creatinine 0.8 mg/dL (0.6-1.0) Estimated GFR (Cockcroft-Gault) 93.9 BUN/Creatinine Ratio 10 (6-20) Glucose Level 82 mg/dL (70-99) Calcium Level 8.9 mg/dL (8.5-10.1) Total Bilirubin 0.7 mg/dL (0.2-1.0) Aspartate Amino Transferase (AST) 14 U/L (15-37) L Alanine Aminotransferase (ALT) 18 U/L (14-59) Alkaline Phosphatase 85 U/L (46-116) Total Protein 7.3 g/dL (6.4-8.2) Albumin 3.5 g/dL (3.4-5.0) Albumin/Globulin Ratio 0.9 (1.0-1.7) L Lipase 76 U/L (73-393) Ethyl Alcohol Level < 10 mg/dL (0-10) Laboratory Tests 01/01/19 15:30 Laboratory Tests 01/01/19 15:30 EKG EKG [] Radiology/Procedures Radiology/Procedures [] Course & Med Decision Making Course & Med Decision Making Pertinent Labs and Imaging studies reviewed. (See chart for details) This is a 43-year-old female patient presenting to the ED today with abdominal pain generalized in nature, dysuria, nausea, symptoms for 2 weeks. Urine noted for small amount of leukocytes, CBC with normal WBC, CMP with no acute findings, blood pressure 183/111, patient states she's been out of her medications for a couple weeks, she states she is supposed to take lisinopril/HCTZ. She states she has not been able to see her PCP because she works during the days when the office is open. She is requesting a prescription for a couple days until she is able to see the PCP. Rx was given. Discharge and cephalexin. Zofran prescription also provided. Patient was provided a meal in the ED. She is currently eating in no distress. Dragon Disclaimer Dragon Disclaimer This electronic medical record was generated, in whole or in part, using a voice recognition dictation system. Departure Departure Impression: Primary Impression: Elevated blood pressure reading Additional Impression: Urinary tract infection Disposition: 01 HOME, SELF-CARE Condition: STABLE Referrals: UNKNOWN PCP NAME (PCP) follow up in 1-2 weeks Patient Instructions: Urinary Tract Infection Additional Instructions: You were evaluated in the emergency room, urine noted to have urinary tract infection, we put you on antibiotics, take it as prescribed until completed. Ensure you taking your blood pressure medications. Push fluids. Follow-up with your doctor in the next 1-2 weeks. Scripts Fluconazole (DIFLUCAN) 150 Mg Tablet 1 TAB PO ONCE, #1 TAB 1 Refill Prov: MUTUNGA,WALDO DELINQUENT TAX COLLECTION ASSISTANT 01/01/19 Lisinopril/Hydrochlorothiazide (LISINOPRIL-HCTZ 10-12.5 MG TAB) 1 Each Tablet 1 TAB PO DAILY, #30 TAB 0 Refills Prov: MUTUNGA,WALDO DELINQUENT TAX COLLECTION ASSISTANT 01/01/19 Ondansetron (ONDANSETRON ODT) 4 Mg Tab.rapdis 1 TAB PO PRN Q6-8HRS, #16 TAB Prov: WALDO ADAME APRN 01/01/19 Cephalexin (CEPHALEXIN) 500 Mg Tablet 1 TAB PO BID, #14 TAB Prov: WALDO ADAME APRN 01/01/19 Problem Qualifiers Additional Impression: Urinary tract infection Urinary tract infection type: site unspecified Hematuria presence: without hematuria Qualified Codes: N39.0 - Urinary tract infection, site not specified WALDO ADAME APRN January 01, 2019 17:28
[2019-01-01 17:30] VITALS: BP 188/111
[2019-01-01] MEDS ORDERED: FLUC150T PO (17:37)
== END 2019-01-01 17:45 | disposition home or self-care (01) ==
LOC: ER 13:50
DX: N39.0 Urinary tract infection, site not specified (principal); I10 Essential (primary) hypertension; R11.0 Nausea; K21.9 Gastro-esophageal reflux disease without esophagitis; F10.20 Alcohol dependence, uncomplicated; Y90.0 Blood alcohol level of less than 20 mg/100 ml; Z87.442 Personal history of urinary calculi; Z90.49 Acquired absence of other specified parts of digestive tract; Z98.890 Other specified postprocedural states
CPT/HCPCS: 36415; 80053; 80307; 81001; 83690; 85025; 96374; 96375; 99284; G0480; J2405; J3490; J7030

== ENCOUNTER 2019-07-09 09:29 | Emergency (ER) | payer SELFPAY ==
[~2019-07-09] VITALS: Ht 157.5 cm; Wt 112.0 kg
[~2019-07-09 09:29] MED LIST changes: +CEPH500T PO; +LISI1TAB23 PO; +ONDA4TAB12 PO
[2019-07-09 09:52] VITALS: BP 136/81
[2019-07-09] MEDS ORDERED: ONDANSETRON PF 4 MG/2 ML VIAL. IV ONE (10:15)
[2019-07-09] MEDS ORDERED: IV NORMAL SALINE 1000ML BAG 1,000 ML IV ONE (10:15)
--- NOTE | 2019-07-09 10:15 | PHYS DOC ---
Past Medical History Past Medical History: GERD, Hypertension, Kidney Stone, Other Additional Past Medical Histor: hemorroids Past Surgical History: Cholecystectomy, Alcohol Use: Heavy Drug Use: None Adult General Chief Complaint Chief Complaint: CONSTIPATION HPI HPI Patient is a 44 year old female who presents with abdominal pain and states she is not a bowel movement 4 days. The patient also states she's been feeling nauseous. She rates her pain 10 out of 10 in severity and sharp. She states this is abnormal for her not have bowel movements. Denies any pain medicine at home. Review of Systems Review of Systems Constitutional: Denies fever or chills [] Eyes: Denies change in visual acuity, redness, or eye pain [] HENT: Denies nasal congestion or sore throat [] Respiratory: Denies cough or shortness of breath [] Cardiovascular: No additional information not addressed in HPI [] GI: Reports abdominal pain, nausea, Denies vomiting, bloody stools or diarrhea [] : Denies dysuria or hematuria [] Musculoskeletal: Denies back pain or joint pain [] Integument: Denies rash or skin lesions [] Neurologic: Denies headache, focal weakness or sensory changes [] Endocrine: Denies polyuria or polydipsia [] Complete systems were reviewed and found to be within normal limits, except as documented in this note. Current Medications Current Medications Current Medications Medications (Trade) Dose Ordered Sig/Trish Start Time Stop Time Status Last Admin Dose Admin Info (CONTRAST GIVEN -- Rx MONITORING) 1 each PRN DAILY PRN 07/09/19 11:15 07/11/19 11:14 Iohexol (Omnipaque 300 Mg/ml) 75 ml 1X ONCE 07/09/19 11:15 07/09/19 11:16 DC 07/09/19 11:21 75 ML Ondansetron HCl (Zofran) 4 mg 1X ONCE 07/09/19 10:15 07/09/19 10:16 DC 07/09/19 10:40 4 MG Sodium Chloride 1,000 ml @ 1,000 mls/hr 1X ONCE 07/09/19 10:15 07/09/19 11:14 DC 07/09/19 10:40 1,000 MLS/HR Allergies Allergies Allergies Coded Allergies Type Severity Reaction Last Updated Verified No Known Drug Allergies 11/30/14 No Physical Exam Physical Exam Constitutional: Well developed, well nourished, no acute distress, non-toxic appearance. [] HENT: Normocephalic, atraumatic, bilateral external ears normal, oropharynx moist, no oral exudates, nose normal. [] Eyes: PERRLA, EOMI, conjunctiva normal, no discharge. [] Neck: Normal range of motion, no tenderness, supple, no stridor. [] Cardiovascular:Heart rate regular rhythm, no murmur [] Lungs & Thorax: Bilateral breath sounds clear to auscultation [] Abdomen: Bowel sounds normal, soft, diffuse tenderness, no masses, no pulsatile masses. [] Skin: Warm, dry, no erythema, no rash. [] Back: No tenderness, no CVA tenderness. [] Extremities: No tenderness, no cyanosis, no clubbing, ROM intact, no edema. [] Neurologic: Alert and oriented X 3, normal motor function, normal sensory function, no focal deficits noted. [] Psychologic: Affect normal, judgement normal, mood normal. [] Current Patient Data Vital Signs Vital Signs Date Time Temp Pulse Resp B/P (MAP) Pulse Ox O2 Delivery O2 Flow Rate FiO2 07/09/19 09:52 98.3 89 18 136/81 (99) 99 Room Air 98.3 Lab Values Laboratory Tests Test 07/09/19 10:40 07/09/19 10:45 White Blood Count 6.9 x10^3/uL (4.0-11.0) Red Blood Count 5.07 x10^6/uL (3.50-5.40) Hemoglobin 14.7 g/dL (12.0-15.5) Hematocrit 44.5 % (36.0-47.0) Mean Corpuscular Volume 88 fL (79-100) Mean Corpuscular Hemoglobin 29 pg (25-35) Mean Corpuscular Hemoglobin Concent 33 g/dL (31-37) Red Cell Distribution Width 14.3 % (11.5-14.5) Platelet Count 214 x10^3/uL (140-400) Neutrophils (%) (Auto) 51 % (31-73) Lymphocytes (%) (Auto) 36 % (24-48) Monocytes (%) (Auto) 8 % (0-9) Eosinophils (%) (Auto) 4 % (0-3) H Basophils (%) (Auto) 1 % (0-3) Neutrophils # (Auto) 3.5 x10^3/uL (1.8-7.7) Lymphocytes # (Auto) 2.5 x10^3/uL (1.0-4.8) Monocytes # (Auto) 0.6 x10^3/uL (0.0-1.1) Eosinophils # (Auto) 0.3 x10^3/uL (0.0-0.7) Basophils # (Auto) 0.1 x10^3/uL (0.0-0.2) Sodium Level 138 mmol/L (136-145) Potassium Level 3.9 mmol/L (3.5-5.1) Chloride Level 100 mmol/L (98-107) Carbon Dioxide Level 30 mmol/L (21-32) Anion Gap 8 (6-14) Blood Urea Nitrogen 7 mg/dL (7-20) Creatinine 0.8 mg/dL (0.6-1.0) Estimated GFR (Cockcroft-Gault) 93.4 BUN/Creatinine Ratio 9 (6-20) Glucose Level 125 mg/dL (70-99) H Calcium Level 9.8 mg/dL (8.5-10.1) Total Bilirubin 0.4 mg/dL (0.2-1.0) Aspartate Amino Transferase (AST) 15 U/L (15-37) Alanine Aminotransferase (ALT) 17 U/L (14-59) Alkaline Phosphatase 85 U/L (46-116) Total Protein 8.2 g/dL (6.4-8.2) Albumin 3.8 g/dL (3.4-5.0) Albumin/Globulin Ratio 0.9 (1.0-1.7) L Lipase 82 U/L (73-393) Urine Collection Type Unknown Urine Color Yellow Urine Clarity Clear Urine pH 7.5 Urine Specific [place] 1.020 Urine Protein Negative mg/dL (NEG-TRACE) Urine Glucose (UA) Negative mg/dL (NEG) Urine Ketones (Stick) Negative mg/dL (NEG) Urine Blood Negative (NEG) Urine Nitrite Negative (NEG) Urine Bilirubin Negative (NEG) Urine Urobilinogen Dipstick 0.2 mg/dL (0.2 mg/dL) Urine Leukocyte Esterase Negative (NEG) Urine RBC 0 /HPF (0-2) Urine WBC 0 /HPF (0-4) Urine Squamous Epithelial Cells Mod /LPF Urine Bacteria 0 /HPF (0-FEW) Urine Mucus Slight /LPF Laboratory Tests 07/09/19 10:40 Laboratory Tests 07/09/19 10:40 EKG EKG [] Radiology/Procedures Radiology/Procedures [][facility] [address] [place] [address] IMAGING REPORT Signed PATIENT: DANIEL BEVERLY ACCOUNT: [id number] : 1975 LOCATION: ER AGE: 44 SEX: F EXAM STATUS: REG ER ORD. PHYSICIAN: EVER FAJARDO APRN REASON: abd pain, no bowel movement in 4 days PROCEDURE: CT ABD PELV W/ IV CONTRST ONLY Axial CT of the abdomen and pelvis were obtained after the administration of 75 cc Isovue 370. Coronal and sagittal reformats are also available. Exposure: One or more of the following individualized dose reduction techniques were utilized for this examination: 1. Automated exposure control 2. Adjustment of the mA and/or kV according to patient size 3. Use of iterative reconstruction technique Indication: Abdominal pain, no bowel movement for 4 days. Comparison: 03/26/2017. Findings: The lung bases are clear. There is a calcified granuloma in the lingula. The heart is unenlarged. Patient is status post cholecystectomy. Liver, spleen, adrenals, kidneys and pancreas are unremarkable in appearance. The abdominal aorta is nonaneurysmal. Stomach, small and large bowel are nondistended. No evidence pathologic wall thickening the appendix is visualized and appears unremarkable. No free air or fluid. Radiologically significant retroperitoneal or mesenteric adenopathy. The portal, superior mesenteric and splenic veins are normal in appearance. Mild physiologic hypertrophy of uterus. Tubal ligation clips are identified. Bony structures are unremarkable in appearance. IMPRESSION: 1. Unremarkable CT examination of the abdomen and pelvis. Electronically signed by: Kristopher Grande MD (07/09/2019 11:44 AM) [facility] DICTATED and SIGNED BY: KRISTOPHER GRANDE MD DATE: 07/09/19 1143 Course & Med Decision Making Course & Med Decision Making Pertinent Labs and Imaging studies reviewed. (See chart for details) Will get UA, labs, and CT. UA, labs, and CT are unremarkable. Will d/c home to follow up with primary care. Catina Disclaimer Catina Disclaimer This electronic medical record was generated, in whole or in part, using a voice recognition dictation system. Departure Departure Impression: Primary Impression: Abdominal pain Disposition: HOME, SELF-CARE Condition: STABLE Referrals: UNKNOWN PCP NAME (PCP) Patient Instructions: Abdominal Pain (Nonspecific) Additional Instructions: Thank you for visiting [facility]. We appreciate you trusting us with your care. If any additional problems come up don't hesitate to return to visit us. Please follow up with your primary care provider so they can plan additional care if needed and know about the problem that you had. If symptoms worsen come back to the Emergency Department. Any concerning symptoms that start such as chest pain, shortness of air, weakness or numbness on one side of the body, running high fevers or any other concerning symptoms return to the ER. Scripts Ondansetron (ONDANSETRON ODT) 4 Mg Tab.rapdis 1 TAB PO PRN Q6-8HRS PRN for NAUSEA, #16 TAB Prov: EVER FAJARDO APRN 07/09/19 Problem Qualifiers Primary Impression: Abdominal pain Abdominal location: generalized Qualified Codes: R10.84 - Generalized abdominal pain EVER FAJARDO APRN Jul 09, 2019 10:14
[2019-07-09 11:06] LABS: CALCIUM 9.8 mg/dL (8.5-10.1); CREATININE 0.8 mg/dL (0.6-1.0); GFR 93.4; POTASSIUM 3.9 mmol/L (3.5-5.1)
[2019-07-09 11:12] LABS: ALBUMIN 3.8 g/dL (3.4-5.0); ALBUMIN/GLOBULIN RATIO 0.9 (1.0-1.7); TOTAL BILIRUBIN 0.4 mg/dL (0.2-1.0); TOTAL PROTEIN 8.2 g/dL (6.4-8.2)
[2019-07-09 11:13] LABS: BILIRUBIN,URINE NEGATIVE (NEG); CLARITY,URINE CLEAR; COLOR,URINE YELLOW; NITRITE,URINE NEGATIVE (NEG); PH,URINE 7.5; PROTEIN,URINE NEGATIVE (NEG-TRACE); UROBILINOGEN,URINE 0.2 mg/dL (0.2 mg/dL)
[2019-07-09] MEDS ORDERED: IOHEXOL 300 MG/ML 100ML VIAL. IV ONE (11:15)
[2019-07-09] MEDS ORDERED: CONTRAST GIVEN. MC PRN (11:15)
[2019-07-09 11:25] LABS: BASO # 0.1 x10^3/uL (0.0-0.2); BASO % 1 % (0-3); EOS # 0.3 x10^3/uL (0.0-0.7); EOS % 4 % (0-3); HEMATOCRIT 44.5 % (36.0-47.0); HEMOGLOBIN 14.7 g/dL (12.0-15.5); LYMPH # 2.5 x10^3/uL (1.0-4.8); LYMPH % 36 % (24-48); MEAN CORPUSCULAR HEMOGLOBIN 29 pg (25-35); MEAN CORPUSCULAR HGB CONC 33 g/dL (31-37); MEAN CORPUSCULAR VOLUME 88 fL (79-100); MONO # 0.6 x10^3/uL (0.0-1.1); MONO % 8 % (0-9); NEUT # 3.5 x10^3/uL (1.8-7.7); NEUT % 51 % (31-73); PLATELET COUNT 214 x10^3/uL (140-400); RED BLOOD COUNT 5.07 x10^6/uL (3.50-5.40); RED CELL DISTRIBUTION WIDTH 14.3 % (11.5-14.5); WHITE BLOOD COUNT 6.9 x10^3/uL (4.0-11.0)
[2019-07-09 11:30] LABS: BACTERIA,URINE 0 /HPF (0-FEW); RBC,URINE 0 /HPF (0-2); SQUAMOUS EPITHELIAL CELL,UR MOD /LPF; WBC,URINE 0 /HPF (0-4)
--- NOTE | 2019-07-09 11:47 | RAD ---
Axial CT of the abdomen and pelvis were obtained after the administration of 75 cc Isovue 370. Coronal and sagittal reformats are also available. Exposure: One or more of the following individualized dose reduction techniques were utilized for this examination: 1. Automated exposure control 2. Adjustment of the mA and/or kV according to patient size 3. Use of iterative reconstruction technique Indication: Abdominal pain, no bowel movement for 4 days. Comparison: 03/26/2017. Findings: The lung bases are clear. There is a calcified granuloma in the lingula. The heart is unenlarged. Patient is status post cholecystectomy. Liver, spleen, adrenals, kidneys and pancreas are unremarkable in appearance. The abdominal aorta is nonaneurysmal. Stomach, small and large bowel are nondistended. No evidence pathologic wall thickening the appendix is visualized and appears unremarkable. No free air or fluid. Radiologically significant retroperitoneal or mesenteric adenopathy. The portal, superior mesenteric and splenic veins are normal in appearance. Mild physiologic hypertrophy of uterus. Tubal ligation clips are identified. Bony structures are unremarkable in appearance. IMPRESSION: 1. Unremarkable CT examination of the abdomen and pelvis. Electronically signed by: Kristopher Santiago MD (07/09/2019 11:44 AM) [id number]
[2019-07-09] MEDS ORDERED: ONDA4TAB12 PO (12:06)
== END 2019-07-09 12:10 | disposition home or self-care (01) ==
LOC: ER 09:29
DX: R10.84 Generalized abdominal pain (principal); R11.0 Nausea; K21.9 Gastro-esophageal reflux disease without esophagitis; I10 Essential (primary) hypertension; Z87.442 Personal history of urinary calculi; Z90.49 Acquired absence of other specified parts of digestive tract; F10.20 Alcohol dependence, uncomplicated; Y90.9 Presence of alcohol in blood, level not specified
CPT/HCPCS: 36415; 74177; 80053; 81001; 83690; 85025; 96374; 99285; J2405; J7030; Q9967

== ENCOUNTER 2019-09-17 14:20 | Emergency (ER) | payer SELFPAY ==
[~2019-09-17] VITALS: Ht 157.5 cm; Wt 110.0 kg
[2019-09-17 14:50] VITALS: BP 134/87
[2019-09-17] MEDS ORDERED: NEO/5DRO5 AD (15:33)
--- NOTE | 2019-09-17 15:33 | PHYS DOC ---
Past Medical History Past Medical History: GERD, Hypertension, Kidney Stone, Other Additional Past Medical Histor: hemorroids Past Surgical History: Cholecystectomy, Alcohol Use: Heavy Drug Use: None Adult General Chief Complaint Chief Complaint: EARACHE/EAR PAIN HPI HPI Patient is a 44 year old female who presents to the ED today complaining of right ear drainage for 1 month. Review of Systems Review of Systems Constitutional: Denies fever or chills [] Eyes: Denies change in visual acuity, redness, or eye pain [] HENT: Reports right ear drainage. Denies nasal congestion or sore throat [] Respiratory: Denies cough or shortness of breath [] Cardiovascular: No additional information not addressed in HPI [] GI: Denies abdominal pain, nausea, vomiting, bloody stools or diarrhea [] : Denies dysuria or hematuria [] Musculoskeletal: Denies back pain or joint pain [] Integument: Denies rash or skin lesions [] Neurologic: Denies headache, focal weakness or sensory changes [] All other systems were reviewed and found to be within normal limits, except as documented in this note. Allergies Allergies Allergies Coded Allergies Type Severity Reaction Last Updated Verified No Known Drug Allergies 11/30/14 No Physical Exam Physical Exam Constitutional: Well developed, well nourished, no acute distress, non-toxic appearance. [] HENT: Normocephalic, atraumatic, bilateral external ears normal, oropharynx moist, no oral exudates, nose normal. [] Right ear canal is mildly injected, there is small amount of yellow exudate in the ear canal, the TM appears normal. Eyes: PERRLA, EOMI, conjunctiva normal, no discharge. [] Neck: Normal range of motion, no tenderness, supple, no stridor. [] Cardiovascular:Heart rate regular rhythm, no murmur [] Lungs & Thorax: Bilateral breath sounds clear to auscultation [] Abdomen: Bowel sounds normal, soft, no tenderness, no masses, no pulsatile masses. [] Skin: Warm, dry, no erythema, no rash. [] Back: No tenderness, no CVA tenderness. [] Extremities: No tenderness, no cyanosis, no clubbing, ROM intact, no edema. [] Neurologic: Alert and oriented X 3, normal motor function, normal sensory functi on, no focal deficits noted. [] Psychologic: Affect normal, judgement normal, mood normal. [] Current Patient Data Vital Signs Vital Signs Date Time Temp Pulse Resp B/P (MAP) Pulse Ox O2 Delivery O2 Flow Rate FiO2 09/17/19 14:50 98.0 87 16 134/87 (103) 94 Room Air 98.0 EKG EKG [] Radiology/Procedures Radiology/Procedures [] Course & Med Decision Making Course & Med Decision Making Pertinent Labs and Imaging studies reviewed. (See chart for details) Patient has otitis externa, discharged with Cortisporin. Provided ENT for follow-up. Dragon Disclaimer Dragon Disclaimer This electronic medical record was generated, in whole or in part, using a voice recognition dictation system. Departure Departure Impression: Primary Impression: Otitis externa Disposition: HOME, SELF-CARE Condition: STABLE Referrals: UNKNOWN PCP NAME (PCP) POLA SILVERIO MD follow up in 1-2 weeks Patient Instructions: Otitis Externa, [id number] Additional Instructions: You were evaluated in the emergency room and noted to have right ear canal infection. Use the prescribed eardrops as ordered. Scripts Fernando/Polymyx B Sulf/Dexameth (POEWIU-LJUMU-EBIASAYI EYE DROP) 5 Ml Drops.susp 1 DROP AD Q4HRS W/A, #5 ML 0 Refills use for 7-10 days Prov: WALDO ADAME APRN 09/17/19 Problem Qualifiers Primary Impression: Otitis externa Otitis externa type: other infective Chronicity: acute Laterality: right Qualified Codes: H60.391 - Other infective otitis externa, right ear WALDO ADAME [employer]ILANCE SCIENTIST Sep 17, 2019 15:33
== END 2019-09-17 15:41 | disposition home or self-care (01) ==
LOC: ER 14:20
DX: H60.391 Other infective otitis externa, right ear (principal); K21.9 Gastro-esophageal reflux disease without esophagitis; I10 Essential (primary) hypertension; F10.10 Alcohol abuse, uncomplicated; Z87.442 Personal history of urinary calculi; Z90.49 Acquired absence of other specified parts of digestive tract; Z98.890 Other specified postprocedural states
CPT/HCPCS: 99283

== ENCOUNTER 2019-11-07 19:33 | Emergency (ER) | payer SELFPAY ==
[~2019-11-07] VITALS: Ht 157.5 cm; Wt 114.0 kg
[~2019-11-07 19:33] MED LIST changes: +NEO/5DRO5 AD
--- NOTE | 2019-11-07 20:05 | PHYS DOC ---
Past Medical History Past Medical History: GERD, Hypertension, Kidney Stone, Other Additional Past Medical Histor: hemorroids, GALL STONES (EVER FAJARDO APRN) Past Surgical History: Cholecystectomy, (EVER FAJARDO APRN) Smoking Status: Current Every Day Smoker Alcohol Use: Heavy Drug Use: None (EVER FAJARDO APRN) Adult General Chief Complaint Chief Complaint: GI PROBLEM HPI HPI Patient is a 44 year old female who presents with fatigue, nausea, vomiting, diarrhea, abdominal pain after eating this been ongoing for a week. The patient rates her pain is 10 out of 10 in severity and sharp. Denies fever, cough, tamiko rtness of breath. Complete ROS were reviewed and found to be within normal limits, except as documented in the HPI (EVER FAJARDO APRN) Current Medications Current Medications Current Medications Medications (Trade) Dose Ordered Sig/Trish Start Time Stop Time Status Last Admin Dose Admin Info (CONTRAST GIVEN -- Rx MONITORING) 1 each PRN DAILY PRN 11/07/19 20:15 11/07/19 21:40 DC Iohexol (Omnipaque 300 Mg/ml) 75 ml 1X ONCE 11/07/19 20:15 11/07/19 20:16 DC Multi-Ingredient Mouthwash/Gargle (Gi Cocktail) 20 ml 1X ONCE 11/07/19 20:15 11/07/19 20:16 DC 11/07/19 20:36 20 ML Ondansetron HCl (Zofran) 4 mg 1X ONCE 11/07/19 20:15 11/07/19 20:16 DC 11/07/19 20:36 4 MG Potassium Chloride (Klor-Con) 40 meq 1X STAT 11/07/19 20:43 11/07/19 20:45 DC 11/07/19 21:25 40 MEQ Sodium Chloride 1,000 ml @ 1,000 mls/hr 1X ONCE 11/07/19 20:15 11/07/19 21:14 DC 11/07/19 20:37 1,000 MLS/HR (MARLY CHONG MD) Allergies Allergies Allergies Coded Allergies Type Severity Reaction Last Updated Verified No Known Drug Allergies 11/30/14 No (MARLY CHONG MD) Physical Exam Physical Exam Constitutional: Well developed, well nourished, no acute distress, non-toxic appearance. [] HENT: Normocephalic, atraumatic, bilateral external ears normal, oropharynx moist, no oral exudates, nose normal. [] Cardiovascular:Heart rate regular rhythm, no murmur [] Lungs & Thorax: Bilateral breath sounds clear to auscultation [] Abdomen: Bowel sounds normal, soft, diffuse tenderness, no masses, no pulsatile masses. [] Neurologic: Alert and oriented X 3, normal motor function, normal sensory function, no focal deficits noted. [] Psychologic: Affect normal, judgement normal, mood normal. [] (EVER FAJARDO APRN) Current Patient Data Vital Signs Vital Signs Date Time Temp Pulse Resp B/P (MAP) Pulse Ox O2 Delivery O2 Flow Rate FiO2 11/07/19 20:57 92 20 127/76 (93) 98 Room Air 11/07/19 19:36 98.9 98.9 (MARLY CHONG MD) Lab Values Laboratory Tests Test 11/07/19 17:55 11/07/19 20:05 Urine Collection Type Void Urine Color Yellow Urine Clarity Clear Urine pH 5.5 (<5.0-8.0) Urine Specific [place] 1.020 (1.000-1.030) Urine Protein Negative mg/dL (NEG-TRACE) Urine Glucose (UA) Negative mg/dL (NEG) Urine Ketones (Stick) Trace mg/dL (NEG) Urine Blood Negative (NEG) Urine Nitrite Negative (NEG) Urine Bilirubin Negative (NEG) Urine Urobilinogen Dipstick 0.2 mg/dL (0.2 mg/dL) Urine Leukocyte Esterase Small (NEG) Urine RBC 0 /HPF (0-2) Urine WBC Occ /HPF (0-4) Urine Squamous Epithelial Cells Many /LPF Urine Bacteria Many /HPF (0-FEW) Urine Mucus Marked /LPF Urine Test Negative (NEG) White Blood Count 8.1 x10^3/uL (4.0-11.0) Red Blood Count 5.03 x10^6/uL (3.50-5.40) Hemoglobin 14.8 g/dL (12.0-15.5) Hematocrit 44.5 % (36.0-47.0) Mean Corpuscular Volume 89 fL (79-100) Mean Corpuscular Hemoglobin 29 pg (25-35) Mean Corpuscular Hemoglobin Concent 33 g/dL (31-37) Red Cell Distribution Width 15.0 % (11.5-14.5) H Platelet Count 268 x10^3/uL (140-400) Neutrophils (%) (Auto) 48 % (31-73) Lymphocytes (%) (Auto) 38 % (24-48) Monocytes (%) (Auto) 10 % (0-9) H Eosinophils (%) (Auto) 3 % (0-3) Basophils (%) (Auto) 1 % (0-3) Neutrophils # (Auto) 3.9 x10^3/uL (1.8-7.7) Lymphocytes # (Auto) 3.0 x10^3/uL (1.0-4.8) Monocytes # (Auto) 0.8 x10^3/uL (0.0-1.1) Eosinophils # (Auto) 0.3 x10^3/uL (0.0-0.7) Basophils # (Auto) 0.1 x10^3/uL (0.0-0.2) Sodium Level 141 mmol/L (136-145) Potassium Level 3.1 mmol/L (3.5-5.1) L Chloride Level 100 mmol/L (98-107) Carbon Dioxide Level 30 mmol/L (21-32) Anion Gap 11 (6-14) Blood Urea Nitrogen 7 mg/dL (7-20) Creatinine 0.9 mg/dL (0.6-1.0) Estimated GFR (Cockcroft-Gault) 81.6 BUN/Creatinine Ratio 8 (6-20) Glucose Level 116 mg/dL (70-99) H Calcium Level 9.0 mg/dL (8.5-10.1) Total Bilirubin 0.4 mg/dL (0.2-1.0) Aspartate Amino Transferase (AST) 18 U/L (15-37) Alanine Aminotransferase (ALT) 19 U/L (14-59) Alkaline Phosphatase 85 U/L (46-116) Total Protein 7.6 g/dL (6.4-8.2) Albumin 3.8 g/dL (3.4-5.0) Albumin/Globulin Ratio 1.0 (1.0-1.7) Lipase 131 U/L (73-393) Laboratory Tests 11/07/19 20:05 Laboratory Tests 11/07/19 20:05 (MARLY CHONG MD) Lab Values Laboratory Tests Test 11/07/19 17:55 11/07/19 20:05 Urine Collection Type Void Urine Color Yellow Urine Clarity Clear Urine pH 5.5 (<5.0-8.0) Urine Specific [place] 1.020 (1.000-1.030) Urine Protein Negative mg/dL (NEG-TRACE) Urine Glucose (UA) Negative mg/dL (NEG) Urine Ketones (Stick) Trace mg/dL (NEG) Urine Blood Negative (NEG) Urine Nitrite Negative (NEG) Urine Bilirubin Negative (NEG) Urine Urobilinogen Dipstick 0.2 mg/dL (0.2 mg/dL) Urine Leukocyte Esterase Small (NEG) Urine RBC 0 /HPF (0-2) Urine WBC Occ /HPF (0-4) Urine Squamous Epithelial Cells Many /LPF Urine Bacteria Many /HPF (0-FEW) Urine Mucus Marked /LPF Urine Test Negative (NEG) White Blood Count 8.1 x10^3/uL (4.0-11.0) Red Blood Count 5.03 x10^6/uL (3.50-5.40) Hemoglobin 14.8 g/dL (12.0-15.5) Hematocrit 44.5 % (36.0-47.0) Mean Corpuscular Volume 89 fL (79-100) Mean Corpuscular Hemoglobin 29 pg (25-35) Mean Corpuscular Hemoglobin Concent 33 g/dL (31-37) Red Cell Distribution Width 15.0 % (11.5-14.5) H Platelet Count 268 x10^3/uL (140-400) Neutrophils (%) (Auto) 48 % (31-73) Lymphocytes (%) (Auto) 38 % (24-48) Monocytes (%) (Auto) 10 % (0-9) H Eosinophils (%) (Auto) 3 % (0-3) Basophils (%) (Auto) 1 % (0-3) Neutrophils # (Auto) 3.9 x10^3/uL (1.8-7.7) Lymphocytes # (Auto) 3.0 x10^3/uL (1.0-4.8) Monocytes # (Auto) 0.8 x10^3/uL (0.0-1.1) Eosinophils # (Auto) 0.3 x10^3/uL (0.0-0.7) Basophils # (Auto) 0.1 x10^3/uL (0.0-0.2) Sodium Level 141 mmol/L (136-145) Potassium Level 3.1 mmol/L (3.5-5.1) L Chloride Level 100 mmol/L (98-107) Carbon Dioxide Level 30 mmol/L (21-32) Anion Gap 11 (6-14) Blood Urea Nitrogen 7 mg/dL (7-20) Creatinine 0.9 mg/dL (0.6-1.0) Estimated GFR (Cockcroft-Gault) 81.6 BUN/Creatinine Ratio 8 (6-20) Glucose Level 116 mg/dL (70-99) H Calcium Level 9.0 mg/dL (8.5-10.1) Total Bilirubin 0.4 mg/dL (0.2-1.0) Aspartate Amino Transferase (AST) 18 U/L (15-37) Alanine Aminotransferase (ALT) 19 U/L (14-59) Alkaline Phosphatase 85 U/L (46-116) Total Protein 7.6 g/dL (6.4-8.2) Albumin 3.8 g/dL (3.4-5.0) Albumin/Globulin Ratio 1.0 (1.0-1.7) Lipase 131 U/L (73-393) Laboratory Tests 11/07/19 20:05 Laboratory Tests 11/07/19 20:05 (EVER FAJARDO APRN) EKG EKG [] (EVER FAJARDO APRN) Radiology/Procedures Radiology/Procedures [][facility] [address], [place] [id number] IMAGING REPORT Signed PATIENT: DANIEL BEVERLY ACCOUNT: [id number] : 1975 LOCATION: ER AGE: 44 SEX: F EXAM STATUS: PRE ER ORD. PHYSICIAN: EVER FAJARDO APRN REASON: abd pain, n, v, d, OMNI 300, 75 ML IV PROCEDURE: CT ABD PELV W/ IV CONTRST ONLY Exam: CT of abdomen and pelvis with contrast INDICATION: Abdominal pain TECHNIQUE: Sequential axial images through the abdomen and pelvis obtained following the administration of 75 mL of Omni 300 IV contrast. Sagittal and coronal reformatted images were reconstructed from the axial data and reviewed. Comparisons: CT 07/09/2019 FINDINGS: Heart size is normal. No pericardial effusion. Visualized lung bases are clear. No pleural effusion. Liver, spleen, pancreas and adrenals are unremarkable. Gallbladder is surgically absent. Kidneys Demonstrate symmetric enhancement. No perinephric inflammation or hydronephrosis. No renal or ureteral calculi are identified. Bladder is decompressed not well evaluated. Uterus is not enlarged. No abnormal adnexal mass. Large and small bowel are unremarkable. Appendix is normal. No free abdominal air or fluid. No obstruction. Abdominal aorta has a normal course and caliber. Abdominal vasculature is patent. No enlarged abdominal lymph nodes are identified. No suspicious osseous lesions or acute fractures. IMPRESSION: No acute process identified within the abdomen or pelvis. Exposure: One or more of the following in the visualized dose reduction techniques were utilized for this examination: 1. Automated exposure control 2. Adjustment of the MA and/or KV according to patient size 3. Use of iterative of reconstructive technique Electronically signed by: Nivia Castañeda MD (11/07/2019 8:53 PM) [id number] DICTATED and SIGNED BY: NIVIA CASTAÑEDA MD DATE: 11/07/192052 [facility] [address], [place] [id number] IMAGING REPORT Signed PATIENT: DANIEL BEVERLY ACCOUNT: [id number] : 1975 LOCATION: ER AGE: 44 SEX: F EXAM STATUS: PRE ER ORD. PHYSICIAN: EVER FAJARDO APRN REASON: shortness of breath PROCEDURE: PORTABLE CHEST 1V Study: CR PORTABLE CHEST 1V Indication: Shortness of breath. Comparison: None. Findings: The cardiomediastinal silhouette appears mildly enlarged noting that this is likely accentuated by AP technique. Mildly prominent familia but without findings of overt failure or volume overload. No lobar consolidation or pneumothorax. Small chronic foci of mineralization along the superolateral aspect of the left humeral head. The adequately assessed ribs are grossly intact. No free air seen under the diaphragm. Impression: Mild prominence of the cardiomediastinal silhouette and central vasculature without findings of overt volume overload. Collectively, no acute radiographic abnormality of the chest. Electronically signed by: MAGUI CONTRERAS MD (11/07/2019 8:52 PM) [id number] DICTATED and SIGNED BY: MAGUI CONTRERAS MD DATE: 11/07/192051 (EVER FAJARDO APRN) Course & Med Decision Making Course & Med Decision Making Pertinent Labs and Imaging studies reviewed. (See chart for details) We will get labs, and give supportive care, also get a CT scan and give a GI cocktail. Labs, CT scan is unremarkable. Urine does show small leukocytes and bacteria. Patient is have abdominal pain so will treat for this UTI. Likely the patient is having GERD his GI cocktail improved symptoms. Because research has shown that COVID19 it starts with GI symptoms I will have the patient isolate at home for 14 days (EVER FAJARDO APRN) Dragon Disclaimer Dragon Disclaimer This electronic medical record was generated, in whole or in part, using a voice recognition dictation system. (EVER FAJARDO APRN) Critical Care Time Critical care time was [] minutes exclusive of procedures. (MARLY CHONG MD) Departure Departure Impression: Primary Impression: Urinary tract infection Additional Impression: Suspected 2019 novel coronavirus infection Disposition: HOME, SELF-CARE Condition: STABLE Referrals: UNKNOWN PCP NAME (PCP) Patient Instructions: Diet for Gastroesophageal Reflux Disease, Adult, Urinary Tract Infection Additional Instructions: Thank you for visiting [facility]. We appreciate you trusting us with your care. If any additional problems come up don't hesitate to return to visit us. Please follow up with your primary care provider so they can plan additional care if needed and know about the problem that you had. If symptoms worsen come back to the Emergency Department. Any concerning symptoms that start such as chest pain, shortness of air, weakness or numbness on one side of the body, running high fevers or any other concerning symptoms return to the ER. You have a viral syndrome which may include symptoms like muscle aches, fevers, chills, runny nose, cough, sneezing, sore throat, vomiting, or diarrhea. One of the potential viruses that you may have is SARS-CoV-2, the virus that causes COVID-19, also known as the Coronavirus. You are just as likely to have a different viral infection such as the common cold, flu, etc. Most patients with the Coronavirus have mild symptoms and recover on their own. Resting, staying hydrated, and sleep from known cases can be helpful. As of todays visit, you are well enough to go home and treat your symptoms with oral fluids and over the counter medications. Coronavirus testing is not performed on most people with mild symptoms who are being discharged from the emergency department. If Coronavirus testing was performed the results will not be available for possibly up to 2-3 days. If your result is positive you will be contacted. Please follow the following precautions at home: 1) Stay home except to get medical care. 2) As advised by the CDC we recommend you stay in your home and minimize contact with other people. We do not want you to spread the infection. 3) Those who are older or have significant medical issues may have more severe symptoms from this infection. We recommend self-isolation,FOR AT LEAST 7 DAYS after your 1st day of symptoms. AFTER you feel better please wait AT LEAST ANOTHER WEEK before returning to regular activities and being around other people! 4) IF you become sicker and have difficulty breathing, chest pain, unable to eat/drink, severe vomiting, diarrhea, or weakness you may need to return to the Emergency Department. 5) You should restrict activities outside your home, except for getting medical care. DO NOT go to work, school, or public areas. Avoid using public transportation, ride sharing, or taxis. 6) Separate yourself from other people in your home. You should use a separate bathroom if possible. 7) Avoid sharing personal household items such as dishes, cups, eating utensils, towels, etc. 8) Clean all high touch surfaces every day (door knobs, counter tops, etc). Use a household cleaning spray or wipe per label instructions. 9) Clean your hands often. Wash your hands with soap and water for at least 20 seconds. 10) Cover your mouth and nose with a tissue when you cough or sneeze. 11) Throw used tissues in a trash can and immediately wash your hands. For additional resources please visit the CDC website or the [facility] ([phone]). You have been prescribed an antibiotic today to help fight your infection. Please take all of the antibiotic as directed. If after 48 hours the infection is not improving, please return for more care. If the infection worsens, return to ER for additional care. Scripts Ondansetron (ONDANSETRON ODT) 4 Mg Tab.rapdis 1 TAB PO PRN Q6-8HRS PRN for NAUSEA, #20 TAB Prov: EVER FAJARDO APRN 11/07/19 Cephalexin (KEFLEX) 500 Mg Capsule 1 CAP PO BID for 7 Days, #14 CAP 0 Refills Prov: EVER FAJARDO APRN 11/07/19 Problem Qualifiers Primary Impression: Urinary tract infection Urinary tract infection type: acute cystitis Hematuria presence: without hematuria Qualified Codes: N30.00 - Acute cystitis without hematuria EVER FAJARDO APRN Nov 07, 2019 20:05 MARLY CHONG MD Nov 07, 2019 23:17
[2019-11-07 20:11] LABS: BILIRUBIN,URINE NEGATIVE (NEG); CLARITY,URINE CLEAR; COLOR,URINE YELLOW; NITRITE,URINE NEGATIVE (NEG); PH,URINE 5.5 (<5.0-8.0); PROTEIN,URINE NEGATIVE (NEG-TRACE); UROBILINOGEN,URINE 0.2 mg/dL (0.2 mg/dL)
[2019-11-07 20:13] LABS: BASO # 0.1 x10^3/uL (0.0-0.2); BASO % 1 % (0-3); EOS # 0.3 x10^3/uL (0.0-0.7); EOS % 3 % (0-3); HEMATOCRIT 44.5 % (36.0-47.0); HEMOGLOBIN 14.8 g/dL (12.0-15.5); LYMPH % 38 % (24-48); MEAN CORPUSCULAR HEMOGLOBIN 29 pg (25-35); MEAN CORPUSCULAR HGB CONC 33 g/dL (31-37); MEAN CORPUSCULAR VOLUME 89 fL (79-100); MONO # 0.8 x10^3/uL (0.0-1.1); MONO % 10 % (0-9); NEUT # 3.9 x10^3/uL (1.8-7.7); NEUT % 48 % (31-73); PLATELET COUNT 268 x10^3/uL (140-400); RED BLOOD COUNT 5.03 x10^6/uL (3.50-5.40); WHITE BLOOD COUNT 8.1 x10^3/uL (4.0-11.0)
[2019-11-07] MEDS ORDERED: CONTRAST GIVEN. MC PRN (20:15)
[2019-11-07] MEDS ORDERED: LIDO:MAALOX 1:1 20 ML SINGLE DOSE. SWSW ONE (20:15)
[2019-11-07] MEDS ORDERED: IOHEXOL 300 MG/ML 100ML VIAL. IV ONE (20:15)
[2019-11-07] MEDS ORDERED: IV NORMAL SALINE 1000ML BAG 1,000 ML IV ONE (20:15)
[2019-11-07] MEDS ORDERED: ONDANSETRON PF 4 MG/2 ML VIAL. IV ONE (20:15)
[2019-11-07 20:16] LABS: U PREG PATIENT NEGATIVE (NEG)
[2019-11-07 20:20] LABS: CREATININE 0.9 mg/dL (0.6-1.0); GFR 81.6; POTASSIUM 3.1 mmol/L (3.5-5.1)
[2019-11-07 20:21] LABS: BACTERIA,URINE MANY /HPF (0-FEW); RBC,URINE 0 /HPF (0-2); SQUAMOUS EPITHELIAL CELL,UR MANY /LPF; WBC,URINE OCC /HPF (0-4)
[2019-11-07 20:26] LABS: ALBUMIN 3.8 g/dL (3.4-5.0); TOTAL BILIRUBIN 0.4 mg/dL (0.2-1.0); TOTAL PROTEIN 7.6 g/dL (6.4-8.2)
[2019-11-07] MEDS ORDERED: POTASSIUM CHLORIDE 20 MEQ TABLET.ER. PO STA (20:43)
--- NOTE | 2019-11-07 20:55 | RAD ---
Study: CR PORTABLE CHEST 1V Indication: Shortness of breath. Comparison: None. Findings: The cardiomediastinal silhouette appears mildly enlarged noting that this is likely accentuated by AP technique. Mildly prominent familia but without findings of overt failure or volume overload. No lobar consolidation or pneumothorax. Small chronic foci of mineralization along the superolateral aspect of the left humeral head. The adequately assessed ribs are grossly intact. No free air seen under the diaphragm. Impression: Mild prominence of the cardiomediastinal silhouette and central vasculature without findings of overt volume overload. Collectively, no acute radiographic abnormality of the chest. Electronically signed by: MAGUI CONTRERAS MD (11/07/2019 8:52 PM) [id number]
--- NOTE | 2019-11-07 20:56 | RAD ---
Exam: CT of abdomen and pelvis with contrast INDICATION: Abdominal pain TECHNIQUE: Sequential axial images through the abdomen and pelvis obtained following the administration of 75 mL of Omni 300 IV contrast. Sagittal and coronal reformatted images were reconstructed from the axial data and reviewed. Comparisons: CT 07/09/2019 FINDINGS: Heart size is normal. No pericardial effusion. Visualized lung bases are clear. No pleural effusion. Liver, spleen, pancreas and adrenals are unremarkable. Gallbladder is surgically absent. Kidneys Demonstrate symmetric enhancement. No perinephric inflammation or hydronephrosis. No renal or ureteral calculi are identified. Bladder is decompressed not well evaluated. Uterus is not enlarged. No abnormal adnexal mass. Large and small bowel are unremarkable. Appendix is normal. No free abdominal air or fluid. No obstruction. Abdominal aorta has a normal course and caliber. Abdominal vasculature is patent. No enlarged abdominal lymph nodes are identified. No suspicious osseous lesions or acute fractures. IMPRESSION: No acute process identified within the abdomen or pelvis. Exposure: One or more of the following in the visualized dose reduction techniques were utilized for this examination: 1. Automated exposure control 2. Adjustment of the MA and/or KV according to patient size 3. Use of iterative of reconstructive technique Electronically signed by: Nivia Rao MD (11/07/2019 8:53 PM) [id number]
[2019-11-07 20:57] VITALS: BP 127/76
[2019-11-07] MEDS ORDERED: CEPH-264 PO (21:03)
[2019-11-07] MEDS ORDERED: ONDA4TAB12 PO (21:15)
== END 2019-11-07 21:35 | disposition home or self-care (01) ==
LOC: ER 19:33
DX: N30.00 Acute cystitis without hematuria (principal); R11.2 Nausea with vomiting, unspecified; R19.7 Diarrhea, unspecified; R53.83 Other fatigue; R10.9 Unspecified abdominal pain; I10 Essential (primary) hypertension; K21.9 Gastro-esophageal reflux disease without esophagitis; F17.200 Nicotine dependence, unspecified, uncomplicated; Z90.49 Acquired absence of other specified parts of digestive tract; Z98.890 Other specified postprocedural states; Z87.442 Personal history of urinary calculi
CPT/HCPCS: 36415; 71045; 74177; 80053; 81001; 81025; 83690; 85025; 87086; 96361; 96374; 99285; J2405; J7030